=== PATIENT | female | born 1975 | race Two or more races ===

== ENCOUNTER 2017-06-16 11:37 | Emergency (ER) | payer MEDICAID, OTHER ==
[~2017-06-16] VITALS: Ht 160 cm; Wt 61.2 kg
[2017-06-16 11:46] VITALS: BP 125/103
--- NOTE | 2017-06-16 11:53 | NUR ---
DR PRESSLEY AT BEDSIDE FOR EVAL.
[2017-06-16] MEDS ORDERED: ACETAMINOPHEN ES 500 MG TABLET PO ONE (12:00)
--- NOTE | 2017-06-16 12:41 | NUR ---
PT ELOPED. NO MEDS GIVEN.
== END 2017-06-16 13:18 | disposition left against medical advice (07) ==
LOC: ER 11:40
DX: S09.8XXA Other specified injuries of head, initial encounter (principal); F17.200 Nicotine dependence, unspecified, uncomplicated; Y08.89XA Assault by other specified means, initial encounter; Y93.89 Activity, other specified; Y92.89 Other specified places as the place of occurrence of the external cause; Y99.8 Other external cause status
CPT/HCPCS: 99281; A4606; Z7610; Z7502